=== PATIENT | female | born 1940 | race Caucasian/White ===

== ENCOUNTER 2019-12-13 13:30 | Emergency (ER) | payer MEDICARE ==
--- NOTE | 2019-12-13 14:15 | CT ---
Exam: Head CT without contrast HISTORY: Altered mental status. Fall. Pain. COMPARISON: none FINDINGS: Hemorrhage: No intraparenchymal hemorrhage or extra-axial hematoma. Brain parenchyma: Cortical roberto-white matter differentiation is preserved. No mass effect or midline shift. Basilar cisterns are patent.White matter hypodensities due to chronic small vessel ischemic changes. Age-appropriate atrophy. Ventricular system: Ventricles and sulci are patent and symmetric. Calvarium: Intact. Sinuses and mastoid air cells: Adequate aeration. IMPRESSION: 1. No intracranial posttraumatic sequelae. 2. Age-appropriate atrophy. 3. Chronic small vessel ischemic changes of the white matter.
[2019-12-13 14:28] LABS: #Basophils 0.1 thou/uL (0.0-0.2); #Eosinphils 0.2 thou/uL (0.0-0.7); #Lymphocytes 1.7 thou/uL (1.20-3.40); #Monocytes 0.9 thou/uL (0.11-0.59); #Neutrophils 8.4 thou/uL (1.40-6.50); %Basophils 0.7 % (0.0-1.0); %Eosinophils 1.4 % (0.0-10.0); %Lymphocytes 15.2 % (21.0-51.0); %Monocytes 8.2 % (0.0-10.0); %Neutrophils 74.4 % (42.0-75.0); Hemoglobin 12.9 g/dL (12.0-16.0); Mean Corpuscular HGB CONC 32.3 g/dL (32.0-36.0); Mean Corpuscular Hemoglobin 26.4 pg (27.0-31.0); Mean Corpuscular Volume 81.9 fL (78.0-98.0); Mean Platelet Volume 8.1 fL (7.4-10.4); Platelet Count 347 thou/uL (130-400); RBC Distribution Width 13.9 % (11.5-14.5); Red Blood Cell (RBC) Count 4.88 mill/uL (4.20-5.40); White Blood Cell (WBC) Count 11.2 thou/uL (4.8-10.8)
--- NOTE | 2019-12-13 14:37 | RAD ---
Exam: Chest one view HISTORY:Fall. Altered mental status. Comparison: None FINDINGS: Cardiac silhouette: Normal Aorta: Atherosclerosis Pulmonary vessels: Normal Costophrenic angles: Clear LUNGS: No masses or consolidation. Chronic lung parenchymal changes. Pneumothorax: None Osseous abnormalities: Diffuse bony mineralization. Previous fracture involving the right humerus is identified. IMPRESSION: No acute cardiopulmonary process. Atherosclerosis.
[2019-12-13 14:59] LABS: ALT (SGPT) Less than 7 U/L (8-55); AST (SGOT) 9 U/L (5-34); Albumin 3.9 g/dL (3.4-4.8); Alkaline Phosphatase 80 U/L (40-110); Anion Gap 15 mmol/L (10-20); BUN (Urea Nitrogen) 9 mg/dL (9.8-20.1); Bilirubin, Total 0.3 mg/dL (0.2-1.2); CK (CPK) 25 U/L (29-168); Calc. Creatinine Clearance 0 mL/min (70-130); Calcium 8.9 mg/dL (7.8-10.44); Carbon Dioxide 26 mmol/L (23-31); Chloride 101 mmol/L (98-107); Estimated GFR-MDRD 64; Globulin 2.7 g/dL (2.4-3.5); Glucose 168 mg/dL (83-110); Lipase 33 U/L (8-78); Protein, Total 6.6 g/dL (6.0-8.3); Sodium 138 mmol/L (136-145)
--- NOTE | 2019-12-14 13:43 | EKG ---
Test Reason : Blood Pressure : / mmHG Vent. Rate : 074 BPM Atrial Rate : 074 BPM P-R Int : 168 ms QRS Dur : 132 ms QT Int : 448 ms P-R-T Axes : 063 006 133 degrees QTc Int : 497 ms Normal sinus rhythm Left bundle branch block Abnormal ECG Confirmed by JACKELIN NORMAN ([id number]), subeditor BOB DINERO ([id number] on 12/14/2019 1:43:28 PM Referred By: Confirmed By:JACKELIN NORMAN
== END 2019-12-13 16:13 | disposition home or self-care (01) ==
LOC: ERS 13:30
DX: S09.90XA Unspecified injury of head, initial encounter (principal); F03.90 Unspecified dementia, unspecified severity, without behavioral disturbance, psychotic disturbance, mood disturbance, and anxiety; Z79.84 Long term (current) use of oral hypoglycemic drugs; Z79.899 Other long term (current) drug therapy; W19.XXXA Unspecified fall, initial encounter; Y92.009 Unspecified place in unspecified non-institutional (private) residence as the place of occurrence of the external cause
CPT/HCPCS: 36415; 70450; 71045; 80053; 82550; 83690; 83880; 84484; 85025; 93005